=== PATIENT | male | born 1985 | race Caucasian/White ===

== ENCOUNTER 2018-05-24 09:58 | Day surgery (SDC) | payer BC ==
[~2018-05-24 09:58] MED LIST: PROPOFOL 200 MG/20 ML VIAL As Ordered
[2018-05-24] MEDS: NS 1,000 ML IV (10:11)
[2018-05-24] MEDS ORDERED: LIDOCAINE 2% INJ 100 MG/5 ML SDV (FOR ANES.) As Ordered (10:22)
[2018-05-24] MEDS ORDERED: fentaNYL 100 MCG/2 ML INJECTION (J3010) As Ordered (10:23)
== END 2018-05-24 11:14 | disposition home or self-care (01) ==
LOC: M OPP 09:58
DX: R12 Heartburn (principal); R13.10 Dysphagia, unspecified; J32.9 Chronic sinusitis, unspecified; Z79.899 Other long term (current) drug therapy; Z88.8 Allergy status to other drugs, medicaments and biological substances; Z82.61 Family history of arthritis
CPT/HCPCS: 43239